=== PATIENT | female | born 1995 | race Two or more races ===

== ENCOUNTER 2020-08-27 14:03 | Emergency (ER) | payer OTHER ==
[~2020-08-27] VITALS: Ht 160 cm; Wt 49.9 kg
[~2020-08-27 14:03] MED LIST: NO TOMA MEDICAMENTOS
[2020-08-27] MEDS ORDERED: CLARITIN10 MG PO (19:56)
[2020-08-27] MEDS ORDERED: MUCINEX DM ER1 EAC1 PO (19:56)
[2020-08-27] MEDS ORDERED: AMOX-CLAV 875-1 EACH PO (19:56)
[2020-08-27] MEDS ORDERED: INTESTINEX680 M2 PO (19:56)
== END 2020-08-27 20:32 | disposition home or self-care (01) ==
LOC: ER 14:03
DX: B34.9 Viral infection, unspecified (principal)

== ENCOUNTER 2023-02-14 13:43 | Inpatient (IN) | payer OTHER ==
[~2023-02-14] VITALS: Ht 162.6 cm; Wt 54.4 kg
[~2023-02-14 13:43] MED LIST changes: +AMOX-CLAV 875-1 EACH PO; +CLARITIN10 MG PO; +INTESTINEX680 M2 PO; +MUCINEX DM ER1 EAC1 PO
== END 2023-02-19 12:35 | disposition home or self-care (01) | DRG 690 ==
LOC: ER 13:43 → MEDJ 19:55
PROVIDERS: General Practice; ADMIT Internal Medicine; ATTEND Internal Medicine
PROC: BW21YZZ Computerized Tomography (CT Scan) of Abdomen and Pelvis using Other Contrast (ICD-10-PCS; principal; 2023-02-14)
DX: N39.0 Urinary tract infection, site not specified (principal); R30.0 Dysuria; E16.2 Hypoglycemia, unspecified